=== PATIENT | female | born 1985 ===

== ENCOUNTER 2021-08-27 21:45 | Emergency (ER) | payer SELFPAY ==
[2021-08-27] MEDS ORDERED: Cephalexin 500 MG Cap PO ONE ×2 (21:46→23:21)
[2021-08-27] MEDS ORDERED: Cephalexin 500 MG Cap ONE (23:25)
== END 2021-08-27 23:37 | disposition home or self-care (01) ==
LOC: DL.ED 21:45
DX: L03.116 Cellulitis of left lower limb (principal); F17.210 Nicotine dependence, cigarettes, uncomplicated
CPT/HCPCS: 73620; 99283; A9270